=== PATIENT | male | born 1940 | race Caucasian/White ===

== ENCOUNTER 2016-08-26 03:42 | Inpatient (IN) | payer BC, OTHER ==
[~2016-08-26] VITALS: Ht 182.9 cm; Wt 108.3 kg
[2016-08-26] VITALS (41 sets, daily range): BP systolic 73–145; BP diastolic 54–86; PULSE 66–90; TEMP 36.7–37.1; O2SAT 73–98; Ht 182.9 cm; Wt 108.3 kg
[~2016-08-26 03:42] MED LIST: AMLO-114 PO; ASPI-435 PO; HYDR12.56 PO; METO-596 PO
[2016-08-26] MEDS ORDERED: MoRPHine SULFATE 4 MG/ML 1 ML CARP\\VIAL IV STA (03:53)
[2016-08-26] MEDS ORDERED: ONDANSETRON INJ 2 MG/ML 2 ML VIAL IV STA (03:53)
[2016-08-26] MEDS ORDERED: ASPIRIN 81 MG CHEW PO SCH (04:00)
[2016-08-26] MEDS ORDERED: NITROGLYCERIN/D5W 100 MCG/ML 250 ML IV PRN (04:00)
--- NOTE | 2016-08-26 04:03 | EMERGENCY ROOM VISIT NOTE ---
History Report prepared by Kunibla: Lexa Damon Under the Supervision of: Dr. Michel Dietrich D.O. 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 The patient was sleeping when the pain started. There is numbness in his left arm. He was sweaty earlier this morning when the pain started. The pain is rated 8/ 10 in severity. He denies shortness of breath or nausea. He had 81 mg Aspirin JEWEL BEARING GRINDER. He denies any history of heart attack and does not follow up with cardiology. The patient is treated for hypertension. He is a former smoker. Source of History: patient Onset: 2 hours JEWEL BEARING GRINDER Position: chest (left) Symptom Intensity: 8/10 Timing: other (persistent) Associated Symptoms: + diaphoresis, + numbness, No SOB, No nausea Review of Systems See HPI for pertinent positives and negatives. A total of ten systems were reviewed and were otherwise negative. Past Medical & Surgical Medical Problems: (1) Empyema (2) HTN (hypertension) Family History No pertinent family history Social History Smoking Status: Former Smoker Alcohol Use: occasionally Drug Use: marijuana Occupation Status: retired Current/Historical Medications Scheduled Amlodipine (Norvasc), 10 MG PO QAM Aspirin (Aspirin 81), 1 TAB PO QAM Fish Oil ([place]-3), 1 CAP PO Q2D Hydrochlorothiazide (Hctz), 37.5 MG PO QAM Metoprolol Tartrate (Lopressor) (Lopressor), 50 MG PO BID Scheduled PRN Senna (Senokot), 1 TAB PO DAILY PRN for Constipation Allergies Coded Allergies: No Known Allergies (Unverified , 05/09/15) Physical Exam Vital Signs Date Time Temp Pulse Resp B/P Pulse Ox O2 Delivery O2 Flow Rate FiO2 08/26/16 04:32 55 18 112/70 93 08/26/16 04:18 58 18 118/74 94 Nasal Cannula 2.0 08/26/16 04:04 58 08/26/16 03:57 Nasal Cannula 2.0 08/26/16 03:52 Nasal Cannula 2.0 08/26/16 03:52 Nasal Cannula 08/26/16 03:47 36.4 94 16 127/83 93 Room Air Physical Exam GENERAL: Awake, alert, well-appearing, in no distress HENT: Normocephalic, atraumatic. Oropharynx unremarkable. EYES: Normal conjunctiva. Sclera non-icteric. NECK: Supple. No nuchal rigidity. FROM. No JVD. RESPIRATORY: Clear to auscultation. CARDIAC: Regular rate, normal rhythm. Extremities warm and well perfused. Pulses equal. ABDOMEN: Soft, non-distended. No tenderness to palpation. No rebound or guarding. No masses. RECTAL: Deferred. MUSCULOSKELETAL: Chest examination reveals no tenderness. The back is symmetrical on inspection without obvious abnormality. There is no CVA tenderness to palpation. No joint edema. Surgical scar left shoulder area. LOWER EXTREMITIES: Calves are equal size bilaterally and non-tender. No edema. No discoloration. NEURO: Normal sensorium. No sensory or motor deficits noted. SKIN: Diaphoretic. Medical Decision & Procedures ER Provider Diagnostic Interpretation: X-ray: Per my interpretation, Chest One View Portable: Cardiomegaly, mild CHF. Laboratory Results 08/26/16 04:05 Red Blood Count 4.66, Mean Corpuscular Volume 95.5, Mean Corpuscular Hemoglobin 32.8, Mean Corpuscular Hemoglobin Concent 34.4, Mean Platelet Volume 10.6, Neutrophils (%) (Auto) 68.6, Lymphocytes (%) (Auto) 22.4, Monocytes (%) (Auto) 6.4, Eosinophils (%) (Auto) 2.1, Basophils (%) (Auto) 0.3, Neutrophils # (Auto) 7.31, Lymphocytes # (Auto) 2.38, Monocytes # (Auto) 0.68, Eosinophils # (Auto) 0.22, Basophils # (Auto) 0.03 08/26/16 04:05 Test 08/26/16 04:05 08/26/16 04:14 White Blood Count 10.64 K/uL (4.8-10.8) Red Blood Count 4.66 M/uL (4.7-6.1) Hemoglobin 15.3 g/dL (14.0-18.0) Hematocrit 44.5 % (42-52) Mean Corpuscular Volume 95.5 fL (80-100) Mean Corpuscular Hemoglobin 32.8 pg (25-34) Mean Corpuscular Hemoglobin Concent 34.4 g/dl (32-36) Platelet Count 235 K/uL (130-400) Mean Platelet Volume 10.6 fL (7.4-10.4) Neutrophils (%) (Auto) 68.6 % Lymphocytes (%) (Auto) 22.4 % Monocytes (%) (Auto) 6.4 % Eosinophils (%) (Auto) 2.1 % Basophils (%) (Auto) 0.3 % Neutrophils # (Auto) 7.31 K/uL (1.4-6.5) Lymphocytes # (Auto) 2.38 K/uL (1.2-3.4) Monocytes # (Auto) 0.68 K/uL (0.11-0.59) Eosinophils # (Auto) 0.22 K/uL (0-0.5) Basophils # (Auto) 0.03 K/uL (0-0.2) RDW Standard Deviation 46.7 fL (36.4-46.3) RDW Coefficient of Variation 13.4 % (11.5-14.5) Immature Granulocyte % (Auto) 0.2 % Immature Granulocyte # (Auto) 0.02 K/uL (0.00-0.02) Anion Gap 10.0 mmol/L (3-11) Est Creatinine Clear Calc Drug Dose 69.0 ml/min Estimated GFR () 69.1 Estimated GFR (Non- 59.6 BUN/Creatinine Ratio 14.4 (10-20) Calcium Level 8.7 mg/dl (8.5-10.1) Total Bilirubin 0.5 mg/dl (0.2-1) Direct Bilirubin 0.1 mg/dl (0-0.2) Aspartate Amino Transf (AST/SGOT) 23 U/L (15-37) Alanine Aminotransferase (ALT/SGPT) 30 U/L (12-78) Alkaline Phosphatase 90 U/L (45-117) Total Protein 7.7 gm/dl (6.4-8.2) Albumin 4.1 gm/dl (3.4-5.0) Bedside Troponin I 0.060 ng/ml (0-0.045) Laboratory results reviewed by me Medications Administered Medications (Trade) Dose Ordered Sig/Norm Route Start Time Stop Time Status Last Admin Dose Admin Aspirin (Aspirin Chew) 324 mg NOW PO 08/26/16 04:00 09/25/16 03:59 08/26/16 04:03 324 MG Morphine Sulfate (MoRPHine SULFATE INJ) 4 mg NOW STAT IV 08/26/16 03:53 08/26/16 03:57 DC 08/26/16 04:03 4 MG Ondansetron HCl (Zofran Inj) 4 mg NOW STAT IV 08/26/16 03:53 08/26/16 03:57 DC 08/26/16 04:03 4 MG Heparin Sodium (Porcine) (Heparin Iv Bolus) 10,000 unit Advanced Oncotherapy-MED ONCE .ROUTE 08/26/16 04:19 08/26/16 04:20 DC 08/26/16 04:27 10,000 UNIT ECG Indication: chest pain Rate (beats per minute): 59 Rhythm: sinus bradycardia Findings: ST elevation (V4, V5, V6, AvL), other (Recipricol changes II, III, AvF. Findings consistent with acute lateral wall MS.) Comparison ECG Date: 2011 Change: Changes are new compared to normal EKG on date above. ED Course 0350: The patient was evaluated in room A3. A complete history and physical exam was performed. 0353: Zofran 4 mg IV, Morphine Sulfate 4 mg IV. 0400: Nitroglycerin / Dextrose 250 ml @ 0 mls/hr, Aspirin 324 mg PO. 0410: The patient will be evaluated by Dr. Rodgers, Interventional Cardiology. 0430: The patient is on their way to the cardiac catheterization lab. Medical Decision Differential diagnosis includes acute MS, acute myocarditis, acute pericarditis , acute PE, acute aortic dissection, angina, unstable angina. Patient started on aspirin, morphine, nitroglycerin. Patient has ST segment elevation the lateral leads consistent with lateral wall MS. Heart alert was called associate [employer] seen the patient off to the agriculture laborer for further intervention at 4:30. Patient remained in stable condition throughout emergency department evaluation Consults Time Called: [phone] Consulting Physician: Dr. Rodgers, Interventional Cardiology. Returned Call: [phone] Impression Primary Impression: Acute ST elevation myocardial infarction (STEMI) of lateral wall Critical Care I have personally spent greater than 35 minutes of critical care time in the direct management of this patient. This includes bedside care, interpretation of diagnostic studies, and testing, discussion with consultants, patient, and family members, and other required patient management activities. This 35 minutes is in excess of all separately billable procedures. Scribe Attestation The scribe's documentation has been prepared under my direction and personally reviewed by me in its entirety. I confirm that the note above accurately reflects all work, treatment, procedures, and medical decision making performed by me. Departure Information Dispostion Other (Cardiac Route Jumper) Referrals No Doctor, Assigned (PCP) Patient Instructions [facility]
[2016-08-26] MEDS ORDERED: METO50TA16 PO (04:07)
[2016-08-26] MEDS ORDERED: NiCARDipine HCL INJ 2.5 MG/ML 10 ML AMP ONE (04:18)
[2016-08-26] MEDS ORDERED: NITROGLYCERIN/D5W 100MCG/ML 20ML SYR ONE (04:19)
[2016-08-26] MEDS ORDERED: HEPARIN SOD (PORCINE) 1000 UNIT/ML 10 ML VIAL ONE (04:19)
[2016-08-26] MEDS ORDERED: MIDAZOLAM HCL 1 MG/ML 2ML VIAL ONE (04:19)
[2016-08-26] MEDS ORDERED: FENTANYL CITRATE INJ 50 MCG/1 ML 2 ML VIAL ONE (04:19)
[2016-08-26] MEDS ORDERED: OMEG10007 PO (04:20)
[2016-08-26 04:21] LABS: BASO % 0.3 %; BASO ABS # 0.03 K/uL (0-0.2); COMPLETE YES; EOS % 2.1 %; HEMATOCRIT 44.5 % (42-52); IG% 0.2 %; LYMPH % 22.4 %; LYMPH ABS # 2.38 K/uL (1.2-3.4); MEAN CELL VOLUME 95.5 fL (80-100); MEAN CORPUSCULAR HEMOGLOBIN 32.8 pg (25-34); MEAN CORPUSCULAR HGB CONC 34.4 g/dl (32-36); MEAN PLATELET VOLUME 10.6 fL (7.4-10.4); MONO % 6.4 %; NEUT % 68.6 %; PLATELET COUNT 235 K/uL (130-400); RED BLOOD COUNT 4.66 M/uL (4.7-6.1); WHITE BLOOD COUNT 10.64 K/uL (4.8-10.8)
[2016-08-26] MEDS ORDERED: SENN-61 PO (04:23)
[2016-08-26] MEDS ORDERED: HEPARIN SOD 5000 UNIT/0.5 ML CARP ONE (04:24)
[2016-08-26 04:34] LABS: BUN/CREATININE RATIO 14.4 (10-20); CALCIUM 8.7 mg/dl (8.5-10.1); CREATININE 1.2 mg/dl (0.60-1.40); POTASSIUM 3.8 mmol/L (3.5-5.1)
[2016-08-26] MEDS ORDERED: PHENYLEPHRINE HCL INJ 10 MG/ML VIAL ONE (04:38)
[2016-08-26 04:43] LABS: INR 0.9 (0.9-1.1)
[2016-08-26] MEDS ORDERED: TICAGRELOR 90 MG TAB PO ONE (05:01)
[2016-08-26] MEDS ORDERED: EPTIFIBATIDE 2 MG/ML 10 ML VIAL IV ONE (05:16)
[2016-08-26] MEDS ORDERED: DOBUTamine 500MG / 250ML D5W ONE (05:33)
[2016-08-26] MEDS ORDERED: ONDANSETRON INJ 2 MG/ML 2 ML VIAL ONE ×2 (06:04→09:36)
[2016-08-26] MEDS ORDERED: METOCLOPRAMIDE HCL INJ 5 MG/ML 2 ML VIAL ONE ×2 (06:06→10:02)
[2016-08-26] MEDS ORDERED: ATROPINE SULFATE 0.1 MG/ML 10 ML SYR ONE (06:15)
--- NOTE | 2016-08-26 06:16 | Critical Care Consultation ---
Critical Care Consultation Date of Consultation: Aug 26, 2016. Attending Physician: Dr. Pham Reason for Consultation: STEMI with TONNY to LAD History of Present Illness Attending: Dr. Trevor Mayer Patient is a 75-year-old male who presented to the emergency department with chest pain that occurred shortly after getting up to urinate approximately 2 hours prior to his arrival to the ED. He stated there was a continuous dull midsternal pain with numbness going down his left arm and that he was sweaty earlier in the morning. He rated the pain at that time is 8 out of 10 in severity. He took an 81 mg aspirin prior to coming to the emergency department. He states that besides his profuse sweating he had no other symptoms such as shortness of breath, nausea, or vomiting. He is no history of heart attack and has not had any outpatient care with cardiology. He is however a former smoker and is treated for hypertension and hyperlipidemia. He states his family physician has told him that he is borderline for diabetes but currently does not carry the diagnosis or treatment. He denies a history of COPD, CVA, cardiac arrhythmias or blood clots such as DVTs or PEs. Patient did undergo a recent colonoscopy for bleeding that was clean and found to have only diverticulosis and a nonbleeding hemorrhoid. Upon arrival in the ICU he [facility] he underwent one drug- eluting stent to the LAD. Received 16,000 units of heparin, 180 mg Brilinta, and is currently on 5 g of Dobutamine for hypotension. It is my understanding that the patient was bradycardic into the 40s throughout the cath, this is improved since arrival to the ICU and is now in the mid upper 60s. He was also noted to be systolically 70 and his blood pressure and hence was placed on the dobutamine drip; since arrival in the ICU he is in the low 90s. According to nursing staff that was with patient in the He had episodes of hypoxia but was not sure that the pulse ox was reading correctly. Patient arrived on 15 L to the ICU and has been slowly weaning back. A new pulse ox on his forehead is reading greater than 90%. He denies fever/chills, chest pain or pressure, shortness of breath. He denies abdominal pain, nausea, vomiting. He does state that in the past few weeks he has had an increased urinary urge and has trouble making it to the restroom. But denies frequency, dysuria, hematuria. He denies numbness or tingling of the extremities. Past Medical/Surgical History Medical Problems: Empyema HTN (hypertension) Hyperlipidemia STEMI Surgical History: I&D Chest Wall Infection Family History No pertinent family history Mother & Father DM Social History Smoking Status: Former Smoker Drug Use: none Marital Status: single Housing Status: lives alone Occupation Status: retired Allergies Coded Allergies: No Known Allergies (Unverified , 05/09/15) Home Medications Scheduled Amlodipine (Norvasc), 10 MG PO QAM Aspirin (Aspirin 81), 1 TAB PO QAM Fish Oil ([place]-3), 1 CAP PO Q2D Hydrochlorothiazide (Hctz), 37.5 MG PO QAM Metoprolol Tartrate (Lopressor) (Lopressor), 50 MG PO BID Scheduled PRN Senna (Senokot), 1 TAB PO DAILY PRN for Constipation Current Inpatient Medications Current Inpatient Medications Medications (Trade) Dose Ordered Sig/Norm Route Start Time Stop Time Status Last Admin Dose Admin Aspirin 324 mg 324 mg NOW PO 08/26/16 04:00 09/25/16 03:59 08/26/16 04:03 324 MG Nitroglycerin/ Dextrose (Nitroglycerin/ D5w 100 Mcg/Ml) 250 ml @ 0 mls/hr Q0M PRN IV 08/26/16 04:00 09/25/16 03:59 Review of Systems 12 systems reviewed and negative other than previously mentioned in the HPI. Physical Exam Date Time Temp Pulse Resp B/P Pulse Ox O2 Delivery O2 Flow Rate FiO2 08/26/16 04:32 55 18 112/70 93 08/26/16 04:18 58 18 118/74 94 Nasal Cannula 2.0 08/26/16 04:04 58 08/26/16 03:57 Nasal Cannula 2.0 08/26/16 03:52 Nasal Cannula 2.0 08/26/16 03:52 Nasal Cannula 08/26/16 03:47 36.4 94 16 127/83 93 Room Air Vital Signs - as noted Laboratory Data - as noted Physical Exam: General - NAD, Resting in bed with Oxygen via Face Mask at 13L Eyes - PERRL, EOMI No icterus, gaze conjugate ENT - Mucosa moist, no lesions or candidiasis Neck - Supple, trachea midline, no masses or lymphadenopathy, no JVD or bruits Lungs - No paradoxical chest wall movement, diminished breath sounds bilaterally , no wheezes, rales, or rhonchi Heart - Reg rate and rhythm, No murmur, rubs, clicks, or gallops appreciated Abdomen - BS present, no bruits noted, tympanic to percussion, obese, soft, nontender, nondistended, no organomegaly Extremities - Trace edema to mid chins bilaterally, pedal pulses intact Neuro - A&OX4 Strength extremities equal and appropriate bilaterally Reflexes: Bicep, brachioradialis, patellar, and plantar normal and equal CN:PERRL, EOMI, no facial asymmetry, uvula/tongue midline Laboratory Results Last 24 Hours Test 08/26/16 04:05 08/26/16 04:14 White Blood Count 10.64 K/uL Red Blood Count 4.66 M/uL Hemoglobin 15.3 g/dL Hematocrit 44.5 % Mean Corpuscular Volume 95.5 fL Mean Corpuscular Hemoglobin 32.8 pg Mean Corpuscular Hemoglobin Concent 34.4 g/dl Platelet Count 235 K/uL Mean Platelet Volume 10.6 fL Neutrophils (%) (Auto) 68.6 % Lymphocytes (%) (Auto) 22.4 % Monocytes (%) (Auto) 6.4 % Eosinophils (%) (Auto) 2.1 % Basophils (%) (Auto) 0.3 % Neutrophils # (Auto) 7.31 K/uL Lymphocytes # (Auto) 2.38 K/uL Monocytes # (Auto) 0.68 K/uL Eosinophils # (Auto) 0.22 K/uL Basophils # (Auto) 0.03 K/uL RDW Standard Deviation 46.7 fL RDW Coefficient of Variation 13.4 % Immature Granulocyte % (Auto) 0.2 % Immature Granulocyte # (Auto) 0.02 K/uL Prothrombin Time 10.0 SECONDS Prothromb Time International Ratio 0.9 Sodium Level 142 mmol/L Potassium Level 3.8 mmol/L Chloride Level 106 mmol/L Carbon Dioxide Level 26 mmol/L Anion Gap 10.0 mmol/L Blood Urea Nitrogen 17 mg/dl Creatinine 1.20 mg/dl Est Creatinine Clear Calc Drug Dose 69.0 ml/min Estimated GFR () 69.1 Estimated GFR (Non- 59.6 BUN/Creatinine Ratio 14.4 Random Glucose 132 mg/dl Calcium Level 8.7 mg/dl Total Bilirubin 0.5 mg/dl Direct Bilirubin 0.1 mg/dl Aspartate Amino Transf (AST/SGOT) 23 U/L Alanine Aminotransferase (ALT/SGPT) 30 U/L Alkaline Phosphatase 90 U/L Total Protein 7.7 gm/dl Albumin 4.1 gm/dl Bedside Troponin I 0.060 ng/ml Diagnostic Results CXR: Formal Read Pending Per my review: vascular congestion noted bilaterally. Haziness around heart border. increased density in bilateral bases. No bony abnormality. Trachea midline. Assessment & Plan (1) Hyperlipidemia (2) Acute ST elevation myocardial infarction (STEMI) of lateralwall (3) HTN (hypertension) (4) Chest pain Cardiac: * Acute STEMI lateral wall, received 1 TONNY to the LAD * Trend Cardiac Enzymes * Continue Anticoagulation per Dr. Robledo Recommendation * Restart home Cardiac Medications Beta Juice(when Blood pressure allows) and Statin * Obtain ECHO * Consult Cardiology * Reviewed EKG from 0348 * Monitor on Telemetry * Obtain Random Cortisol * Wean Dobutamine as blood pressure tolerates Respiratory: * Continue Supplemental O2 as needed, wean as indicated * Adequate Saturations currently on 13 L Nasal cannula * Repeat CXR in AM of 08/27 GI: * NPO while on Dobutamine * AHA Diet when stable * No GI prophylaxis indicated : * Monitor Daily PRP * Strict I&Os Endocrine: * Monitor blood sugars per nursing protocol * No known diabetes diagnosis Neuro: * Pain well controlled * No neurological symptoms; monitor for changes Heme: * H&H: 15.3/44.5; platelets 235 * PT 10.0 INR 0.9 * Monitor daily CBC * Repeat coags per anticoagulation in the setting of STEMI Access: Left subclavian & Left Forearm PIV in place; Will consent for Central Line/Arterial Line in the setting of continued hypotension CCT: 60 minutes; Not including any billable procedures. Thank you for including us in the care of this patient. Please review Dr. Trevor Mayer's addendum for further recommendations. I have personally evaluated and examined this patient. I agree with assessment and plan of Dorina Hong PA-C. I had a long discussion with the patient regarding his goals of care. He does not want heroic measures undertaken should his heart stop. Particularly he does not want intubation, he does not want CPR. We discussed placing a central venous catheter for administration of vasoactive medications. He does not consider the risks acceptable for possible benefit, he is willing to undergo a PICC line and this is been ordered. We discussed a arterial line and at this time the patient prefers not to undergo that procedure either. Accordingly I discussed this with Dr. Campos and I have changed his resuscitation status to a level V, DO NOT RESUSCITATE in event of cardiac arrest, no intubation nor mechanical ventilation. Reason Critically Ill: Cardiogenic shock following acute myocardial infarction PLAN: Resp: At risk for flash pulmonary edema secondary to cardiogenic shock secondary to acute SD, does not want intubation or mechanical ventilation would consider noninvasive ventilation to augment hemodynamics CV: Reviewed echocardiogram, EF of 30-35% left anterior wall motion abnormality , discussed case with Dr. Campos, concern for cardiogenic shock on dobutamine, on amiodarone, frequent ectopy Fluids/Renal: As continue IV fluids, will get enough fluid between amiodarone and heparin infusion. * Will be at risk for contrast-induced nephropathy, creatinine 1.2. Appears baseline 1-1.1 ID: Trace left pleural effusion could be secondary to prior empyema which required hospitalization in [facility]. GI/Nutrition: Patient can have diet as tolerated, ordered heart healthy, low- sodium, fluid restriction to 1500 MLS. * Patient currently nauseated likely secondary to recent cardiac disease and diaphragmatic irritation * Phenergan 12.5 mg every 6 hours * Patient at risk for aspiration secondary to noninvasive ventilation and nausea with vomiting again patient does not want to be intubated and his care focus on his comfort Heme: Heparin infusion status post acute myocardial infarction and low EF Endocrine: Blood sugars within acceptable limits reviewed random cortisol Patient's goals of care to remain comfortable, does not want heroic efforts undertaken, at this time will not discontinue any care. Would not desire mechanical circulatory support. Patient has a poor prognosis. I have personally spent 45 minutes of critical care time in the direct management of this patient. This time is separate from and in addition to any other critical care service time.
--- NOTE | 2016-08-26 06:20 | Cardiac Catheterization ---
Procedure Note Procedure Date Aug 26, 2016. Pre-Procedure Diagnosis STEMI AUC Score 9 Post-Procedure Diagnosis Severe CAD Procedure(s) Performed Coronary Angiography, Left Heart Cath, PTCA, Aspiration Thrombectomy, Drug Eluting Stent, IVUS, Radial Artery Angiography [employer] Analyst [employer] Counselor(s) None Estimated Blood Loss 20 Medication(s) Aspirin, Heparin, Integrilin, Greg-Synephrine, Versed, Lidocaine 1% Dobutamine 5 mcg/kg/min, Ticagralor 180 mg po Summary of Findings Three vessel coronary artery disease Successful IVUS guided aspiration thrombectomy and TONNY placement in Proximal LAD Marked elevation of LVEDP Relative hypotension requiring treatment. Remaining lesions in RCA and OM Hemodynamics Rest Ao: 88/56 (71) Final Ao: 106/60 LV: 91/23 post "a" 30 Recommendations PCI without planned CABG (Ween dobutamine over next few hours. DAPT minimum 12 months. Consider staged PCI for RCA and OM) Specimens None Radiation Exposure (mGy) 4060 Contrast (mls) 150 Fluids (cc crystalloids) 130 Procedural Complication(s) None Disposition ICU ACC Data Cardiac Status Clinical evaluation leading to the procedure CAD Presntation: STEMI STEMI or Non-STEMI: Thrombolytics: No Anginal Classification: CCS IV Heart Failure: No Cardiogenic Shock w/in 24Hrs: No Cardiac Arrest w/in 24Hrs: No Imaging studies past 6 months: No Stress studies past 6 months: No Coronary Anatomy Dominant: Right Left Main (% Stenosis): Normal LAD (% Stenosis): Proximal (100) D1 (% Stenosis): Proximal (85), Mid (75) Circumflex (% Stenosis): Mid (75) OM1 (% Stenosis): Ostial (85) L PL1 (% Stenosis): Proximal (85) RCA (% Stenosis): Proximal (65), Mid (75), Distal (65) Diagnostic Physician's Name: Lakhwinder Rodgers MD Status: Emergency Closure Device Percutaneous Entry Location: Radial Closure Device: Radial Band Recommendations: PCI without planned CABG, management recommendations (DAPT 12 months minimum) PCI Indication: Immediate PCI for STEMI First Noted: First EKG Lesion Segment Name: LAD proximal Culprit Artery: Yes Stenosis Prior to Rx (%): 100 Chronic Total Occlusion: No IVUS: Yes FFR: No Pre-Procedure DARRIAN Flow: 0 Lesion Complexity: Non-High/Non-C Lesion Length (mm): 30 Thrombus Present: Yes Bifurcation Lesion: Yes Guidewire Across Lesion: Yes Guidewire: Stenosis Post-Procedure (%): 10 Post-Procedure DARRIAN Flow: 3 Device(s) Deployed: Yes Type of Device(s): Aspiration thrombectomy retrieved red thrombus; 3.5 x 33 TONNY; post dilated with 3.75 proximal. IVUS without edge issues. MSA distal 9.7 sqmm; proximal 12.0 sqmm. Intraprocedure Events Significant Dissection: No Perforation: No
[2016-08-26] MEDS ORDERED: SODIUM CHLORIDE 0.9% 1000ML 1,000 ML IV SCH (06:34)
[2016-08-26] MEDS ORDERED: NITROGLYCERIN 0.4 MG SL PER TAB CHARGE SL PRN (06:45)
[2016-08-26] MEDS ORDERED: ALBUT/IPRATROP 3MG/0.5MG NEB 3 ML VIAL INH PRN (06:45)
[2016-08-26] MEDS ORDERED: SENNA 8.6 MG TAB PO PRN (06:45)
[2016-08-26] MEDS ORDERED: MoRPHine SULFATE 2 MG/ML CARP IV PRN ×2 (06:45→14:45)
[2016-08-26] MEDS ORDERED: ACETAMINOPHEN 325 MG TAB PO PRN (06:45)
--- NOTE | 2016-08-26 06:53 | History and Physical ---
History & Physical Date & Time of Service: Aug 26, 2016 at 06:53 Chief Complaint: Acute St Elevation Myocardial Infarction Of Primary Care Physician: No Doctor, Assigned History of Present Illness Source: patient Patient is a 75 yr old male with PMH of HTN, HLP, Former Tobacco use presents for evaluation of chest pain which started while trying to use bathroom this morning. He states having retrosternal chest pain and numbness of left UE associated with diaphoresis. Chest pain 8/10 intensity and he took Aspirin prior to arrival to ED. Denies any history of SOB, dizziness, nausea, vomiting, fever, chills, abd pain, diarrhea, urinary symptoms. Denies any previous history of heart attacks. He recently had colonoscopy which showed diverticulosis and hemorrhoids. Patient was seen and examined after he had TONNY to Proximal LAD and transferred to ICU. He is currently on Dobutamine ggt for hypotension and bradycardia. Past Medical/Surgical History Medical Problems: (1) Empyema Status: Resolved (2) HTN (hypertension) Status: Chronic Hyperlipidemia Past Surgical History: I&D of chest wall abscess Family History No pertinent family history Father, Mother: Diabetes Social History Smoking Status: Former Smoker Alcohol Use: socially Drug Use: none, marijuana Housing status: lives alone Occupational Status: retired Immunizations History of Influenza Vaccine: No History of Tetanus Vaccine?: Unknown History of Pneumococcal: Yes History of Hepatitis B Vaccine: Unknown Multi-Drug Resistant Organisms History of MDRO: No Allergies Coded Allergies: No Known Allergies (Unverified , 05/09/15) Home Medications Scheduled Amlodipine (Norvasc), 10 MG PO QAM Aspirin (Aspirin 81), 1 TAB PO QAM Fish Oil ([place]-3), 1 CAP PO Q2D Hydrochlorothiazide (Hctz), 37.5 MG PO QAM Metoprolol Tartrate (Lopressor) (Lopressor), 50 MG PO BID Scheduled PRN Senna (Senokot), 1 TAB PO DAILY PRN for Constipation Review of Systems See HPI for pertinent positives & negatives. A total of 10 systems reviewed and were otherwise negative. Physical Exam Vital Signs Date Time Temp Pulse Resp B/P Pulse Ox O2 Delivery O2 Flow Rate FiO2 08/26/16 04:32 55 18 112/70 93 08/26/16 04:18 58 18 118/74 94 Nasal Cannula 2.0 08/26/16 04:04 58 08/26/16 03:57 Nasal Cannula 2.0 08/26/16 03:52 Nasal Cannula 2.0 08/26/16 03:52 Nasal Cannula 08/26/16 03:47 36.4 94 16 127/83 93 Room Air General Appearance: WD/WN, no apparent distress Head: normocephalic, atraumatic Eyes: normal inspection, PERRL, EOMI ENT: normal ENT inspection, hearing grossly normal Neck: supple, trachea midline Respiratory/Chest: lungs clear, normal breath sounds, no respiratory distress, no accessory muscle use Cardiovascular: regular rate, rhythm, no murmur, + pertinent finding (1+ B/L pitting edema ) Abdomen/GI: normal bowel sounds, non tender, soft Back: normal inspection Extremities/Musculoskelatal: normal inspection, normal range of motion, + pertinent finding (1+ B/L LE edema) Neurologic/Psych: teletype technician II-XII nml as tested, no motor/sensory deficits, alert, normal mood/affect, normal reflexes, oriented x 3 Skin: normal color, warm/dry Diagnostics Laboratory Results Results Past 24 Hours Test 08/26/16 04:05 08/26/16 04:14 08/26/16 05:00 08/26/16 05:27 Range/Units White Blood Count 10.64 4.8-10.8 K/uL Red Blood Count 4.66 4.7-6.1 M/uL Hemoglobin 15.3 14.0-18.0 g/dL Hematocrit 44.5 42-52 % Mean Corpuscular Volume 95.5 80-100 fL Mean Corpuscular Hemoglobin 32.8 25-34 pg Mean Corpuscular Hemoglobin Concent 34.4 32-36 g/dl Platelet Count 235 130-400 K/uL Mean Platelet Volume 10.6 7.4-10.4 fL Neutrophils (%) (Auto) 68.6 % Lymphocytes (%) (Auto) 22.4 % Monocytes (%) (Auto) 6.4 % Eosinophils (%) (Auto) 2.1 % Basophils (%) (Auto) 0.3 % Neutrophils # (Auto) 7.31 1.4-6.5 K/uL Lymphocytes # (Auto) 2.38 1.2-3.4 K/uL Monocytes # (Auto) 0.68 0.11-0.59 K/uL Eosinophils # (Auto) 0.22 0-0.5 K/uL Basophils # (Auto) 0.03 0-0.2 K/uL RDW Standard Deviation 46.7 36.4-46.3 fL RDW Coefficient of Variation 13.4 11.5-14.5 % Immature Granulocyte % (Auto) 0.2 % Immature Granulocyte # (Auto) 0.02 0.00-0.02 K/uL Prothrombin Time 10.0 9.0-12.0 SECONDS Prothromb Time International Ratio 0.9 0.9-1.1 Sodium Level 142 136-145 mmol/L Potassium Level 3.8 3.5-5.1 mmol/L Chloride Level 106 98-107 mmol/L Carbon Dioxide Level 26 21-32 mmol/L Anion Gap 10.0 3-11 mmol/L Blood Urea Nitrogen 17 7-18 mg/dl Creatinine 1.20 0.60-1.40 mg/dl Est Creatinine Clear Calc Drug Dose 69.0 ml/min Estimated GFR () 69.1 Estimated GFR (Non- 59.6 BUN/Creatinine Ratio 14.4 10-20 Random Glucose 132 70-99 mg/dl Calcium Level 8.7 8.5-10.1 mg/dl Total Bilirubin 0.5 0.2-1 mg/dl Direct Bilirubin 0.1 0-0.2 mg/dl Aspartate Amino Transf (AST/SGOT) 23 15-37 U/L Alanine Aminotransferase (ALT/SGPT) 30 12-78 U/L Alkaline Phosphatase 90 45-117 U/L Total Protein 7.7 6.4-8.2 gm/dl Albumin 4.1 3.4-5.0 gm/dl Bedside Troponin I 0.060 0-0.045 ng/ml Kaolin Activated Coagulation Time 209 312 94-140 SECONDS Test 08/26/16 06:49 Range/Units Diagnostic Radiology CXR: Cardiomegaly EKG EKG:ST elevation in V4, V5, V6, AVL Impression Assessment and Plan STEMI S/P TONNY to LAD Risk Factors: HTN, HLP, Former smoker Present with retrosternal chest pain and left arm numbness, diaphoresis Admit to ICU On dobutamine ggt for hypotension. titrate off as able Continue ASA, Lipitor, BB Trend Troponin Check ECHO Check fasting lipid panel, A1C Oxygen Per protocol Clear liquid diet Cardiology/Ensemble Member consulted HTN: Hold Amlodipine, HCTZ for now HLP Continue Lipitor H/O Diverticulosis: Currently no issues of bleeding Hb stable GI px: PPI DVT Px: Heparin SQ Code Status: Full code Disposition: Monitor in ICU VTE Prophylaxis VTE Risk Assessment Done? Y/N: Yes Risk Level: Moderate
--- NOTE | 2016-08-26 07:03 | DIAGNOSTIC IMAGING REPORT ---
CHEST ONE VIEW PORTABLE CLINICAL HISTORY: Chest pain. Left arm numbness. COMPARISON STUDY: Chest radiograph and chest CT May 19, 2011. FINDINGS: There is no pneumothorax. There may be a trace left pleural effusion. There is lower lung interstitial thickening. There is no evidence for overt pulmonary edema. Mild cardiomegaly is noted. IMPRESSION: 1. Mild cardiomegaly. 2. Mild bibasilar opacities and interstitial thickening. No overt pulmonary edema. Radiographic follow-up is recommended. 3. Trace left pleural effusion. Electronically signed by: Roney Rick M.D. 08/26/2016 7:02 AM Dictated Date/Time: 08/26/2016 7:00 AM
[2016-08-26] MEDS ORDERED: MAGNESIUM SULFATE 1GM / D5W 1 GM in PREMIXED IN D5W 100 ML IV STA (08:49)
[2016-08-26] MEDS ORDERED: METOPROLOL TARTRATE 50 MG TAB PO SCH (09:00)
[2016-08-26] MEDS ORDERED: ASPIRIN 81 MG ECTAB PO SCH (09:00)
[2016-08-26] MEDS ORDERED: ATORVASTATIN 40 MG TAB PO SCH (09:00)
[2016-08-26] MEDS ORDERED: PANTOprazole SOD 40 MG TAB PO SCH (09:00)
[2016-08-26] MEDS ORDERED: DOPamine 400MG / 250ML D5W ONE (09:21)
[2016-08-26] MEDS ORDERED: DOPamine 400MG / D5W 400 MG IV PRN (09:30)
[2016-08-26] MEDS ORDERED: ONDANSETRON 8 MG/54 ML D5W IV SCH (09:45)
--- NOTE | 2016-08-26 10:21 | ECHOCARDIOGRAM REPORT ---
*NOTICE TO RECEIVING [employer] This information is strictly Confidential and protected under [place] law. [place] law prohibits you from making any further disclosure of this information unless further disclosure is expressly permitted by the written consent of the person to whom it pertains or is authorized by law. A general authorization for the release of medical or other information is not sufficient for this purpose. Hospital accepts no responsibility if the information is made available to any other person, INCLUDING THE PATIENT. Interpretation Summary * Name: NONI FRANZ Study Date: 08/26/2016 08:42 AM BP: 114/65 mmHg * Patient Location: .MSICU\S\E111\S\1 HR: 70 * : 1940 (M/d/yyy) Gender: Male Height: 72 in * Age: 75 yrs Ethnicity: CA Weight: 233 lb * Ordering Physician: Joe Pham * Performed By: Camryn Goss * * Reason For Study: AMI * BSA: 2.3 m2 * -- Conclusions -- * There is moderate concentric left ventricular hypertrophy. * There is anterior wall akinesis. * There is septal akinesis. * There is lateral wall akinesis. * There is apical akinesis. * Ejection Fraction = 30-35%. * The right ventricular systolic function is normal. * The left atrial size is normal. * Right atrial size is normal. Procedure Details * A complete two-dimensional transthoracic echocardiogram was performed (2D, M-mode, Doppler and color flow Doppler). * The study was technically difficult. * A contrast injection of Definity was performed to improve assessment of LV function. * Contrast was injected into an intravenous site in the left arm. * One vial of Definity ultrasound contrast was diluted in normal saline to a total volume of 10 ml. A total of '2' ml of solution was administered during imaging. * Lot # [id number] of Definity utilized for procedure. * Expiration date 08/14. * The attending nurse who injected the contrast agent was DANIEL TORO RN. Left Ventricle * The left ventricle is normal in size. * There is no thrombus. * There is moderate concentric left ventricular hypertrophy. * Ejection Fraction = 30-35%. * Left ventricular systolic function is moderate to severely reduced. * There is anterior wall akinesis. * There is septal akinesis. * There is lateral wall akinesis. * There is apical akinesis. Right Ventricle * The right ventricle is normal size. * The right ventricular systolic function is normal. Atria * The left atrial size is normal. * Right atrial size is normal. * The interatrial septum is intact with no evidence for an atrial septal defect. Mitral Valve * The mitral valve is grossly normal. * Significant mitral regurgitation is absent. Tricuspid Valve * The tricuspid valve is not well visualized. * Significant tricuspid regurgitation is absent. Aortic Valve * Aortic valve sclerosis mild, without significant aortic valvular stenosis. * There is no significant aortic regurgitation. Pulmonic Valve * The pulmonic valve is not well visualized. Great Vessels * The aortic root and proximal ascending aorta are normal sized. Pericardium/Pleural * There is no pericardial effusion. MMode 2D Measurements and Calculations IVSd 1.9 cm IVSs 1.7 cm LVIDd 5.0 cm LVIDs 3.4 cm LVPWd 1.4 cm LVPWs 2.4 cm IVS/LVPW 1.4 FS 31.4 % EDV(Teich) 119.5 ml ESV(Teich) 49.1 ml EF(Teich) 59.0 % EDV(cubed) 126.8 ml ESV(cubed) 41.0 ml EF(cubed) 67.7 % % IVS thick -9.05 % % LVPW thick 80.9 % LV mass(C)d 361.9 grams LV mass(C)dI 159.2 grams/m\S\2 LV mass(C)s 331.1 grams LV mass(C)sI 145.6 grams/m\S\2 SV(Teich) 70.5 ml SI(Teich) 31.0 ml/m\S\2 SV(cubed) 85.8 ml SI(cubed) 37.7 ml/m\S\2 ACS 1.1 cm LVOT diam 2.0 cm LVOT area 3.1 cm\S\2 LVAd ap4 41.4 cm\S\2 LVLd ap4 9.4 cm EDV(MOD-sp4) 150.1 ml EDV(sp4-el) 154.3 ml LVAs ap4 25.4 cm\S\2 LVLs ap4 8.3 cm ESV(MOD-sp4) 64.1 ml ESV(sp4-el) 66.4 ml EF(MOD-sp4) 57.3 % EF(sp4-el) 57.0 % LVAd ap2 30.7 cm\S\2 LVLd ap2 8.4 cm EDV(MOD-sp2) 92.0 ml EDV(sp2-el) 95.9 ml LVAs ap2 19.8 cm\S\2 LVLs ap2 7.9 cm ESV(MOD-sp2) 40.1 ml ESV(sp2-el) 42.3 ml EF(MOD-sp2) 56.4 % EF(sp2-el) 55.9 % LVLd %diff -12.69 % EDV(MOD-bp) 124.7 ml LVLs %diff -5.02 % ESV(MOD-bp) 50.4 ml EF(MOD-bp) 59.6 % SV(MOD-sp4) 85.9 ml SI(MOD-sp4) 37.8 ml/m\S\2 SV(MOD-sp2) 51.9 ml SI(MOD-sp2) 22.8 ml/m\S\2 SV(MOD-bp) 74.3 ml SI(MOD-bp) 32.7 ml/m\S\2 SV(sp4-el) 87.9 ml SI(sp4-el) 38.7 ml/m\S\2 SV(sp2-el) 53.7 ml SI(sp2-el) 23.6 ml/m\S\2 Doppler Measurements and Calculations MV E max milvia 85.5 cm/sec MV A max milvia 40.4 cm/sec MV E/A 2.1 MV dec time 0.20 sec Ao V2 max 135.3 cm/sec Ao max PG 7.3 mmHg Ao max PG (full) 5.6 mmHg LISA(V,A) 1.5 cm\S\2 LISA(V,D) 1.5 cm\S\2 LV V1 max PG 1.7 mmHg LV V1 max 65.6 cm/sec PA V2 max 81.4 cm/sec PA max PG 2.7 mmHg PI end-d milvia 146.0 cm/sec
[2016-08-26 10:26] LABS: MAGNESIUM 2.3 mg/dl (1.8-2.4); PHOSPHORUS 2.3 mg/dl (2.5-4.9)
[2016-08-26] MEDS ORDERED: AMIODARONE 360MG / 200ML D5W ONE (10:32)
[2016-08-26] MEDS ORDERED: AMIODARONE 150MG / 100ML D5W ONE (10:32)
[2016-08-26] MEDS ORDERED: HEPARIN 25,000 UNIT/500ML D5W 500 ML IV PRN (10:45)
[2016-08-26] MEDS ORDERED: ONDANSETRON 8 MG/54 ML D5W IV ONE (10:45)
[2016-08-26] MEDS ORDERED: ONDANSETRON INJ 8 MG in DEXTROSE 5% 50ML 50 ML IV ONE (10:45)
[2016-08-26] MEDS ORDERED: ONDANSETRON INJ 8 MG in DEXTROSE 5% 50ML 50 ML IV PRN (10:45)
[2016-08-26] MEDS ORDERED: AMIODARONE IV BOLUS / DRIP IV STA (10:51)
[2016-08-26 10:57] LABS: BASO % 0.1 %; BASO ABS # 0.02 K/uL (0-0.2); HEMATOCRIT 46.1 % (42-52); IG% 0.3 %; LYMPH % 10.2 %; MEAN CELL VOLUME 94.9 fL (80-100); MEAN CORPUSCULAR HEMOGLOBIN 32.5 pg (25-34); MEAN PLATELET VOLUME 10.5 fL (7.4-10.4); MONO % 8.3 %; NEUT % 81.1 %; PLATELET COUNT 245 K/uL (130-400); RED BLOOD COUNT 4.86 M/uL (4.7-6.1); WHITE BLOOD COUNT 14.65 K/uL (4.8-10.8)
[2016-08-26 11:03] LABS: COMPLETE YES; MEAN CORPUSCULAR HGB CONC 34.3 g/dl (32-36)
[2016-08-26 11:10] LABS: INR 0.9 (0.9-1.1); PARTIAL THROMBOPLASTIN RATIO 1.5
[2016-08-26] MEDS ORDERED: AMIODARONE / D5W 100 ML IV SCH (11:30)
[2016-08-26] MEDS ORDERED: AMIODARONE / D5W 200 ML IV SCH ×2 (11:45→17:46)
[2016-08-26] MEDS ORDERED: NURSING VERBAL MED ORDER ONE (12:15)
[2016-08-26] MEDS ORDERED: PROMETHAZINE HCL INJ 12.5 MG in SODIUM CHLORIDE 0.9% 50ML 50 ML IV PRN (12:30)
[2016-08-26] MEDS ORDERED: HEPARIN SOD 5000 UNIT/0.5 ML CARP SQ SCH (14:00)
--- NOTE | 2016-08-26 15:39 | Progress Note ---
Medicine Progress Note Date & Time of Visit: Aug 26, 2016 at 15:24. Subjective Pt was seen and examined Lying in bed, awake with no acute distress denies any chest pain at this time Objective Last 8 Hrs Date Time Temp Pulse Resp B/P Pulse Ox O2 Delivery O2 Flow Rate FiO2 08/26/16 14:00 37.0 77 24 115/66 98 CPAP 08/26/16 12:00 Mask 08/26/16 12:00 36.8 73 20 91/54 87 08/26/16 10:48 36.7 75 98/59 98 Nasal Cannula 15.0 08/26/16 10:00 36.7 73 18 89/62 87 08/26/16 09:48 36.7 73 89/62 96 Nasal Cannula 12.0 08/26/16 08:48 36.7 69 99/57 96 Nasal Cannula 10.0 08/26/16 08:00 Mask 08/26/16 08:00 Mask 08/26/16 07:48 36.7 70 114/65 96 Nasal Cannula 8.0 Physical Exam: General- no acute distress Head- atraumatic Eyes- PERRL, EOMI ENT- oropharynx clear Neck- supple, no JVD Lungs- Coarse Bs Heart- regular rhythm; no murmur Abdomen- normal bowel sounds, soft Extremities- no calf tenderness Neuro- alert, oriented x 3; PERRL, EOMI Skin- warm & dry Laboratory Results: Last 24 Hours Test 08/26/16 04:05 08/26/16 04:14 08/26/16 05:00 08/26/16 05:27 White Blood Count 10.64 K/uL Red Blood Count 4.66 M/uL Hemoglobin 15.3 g/dL Hematocrit 44.5 % Mean Corpuscular Volume 95.5 fL Mean Corpuscular Hemoglobin 32.8 pg Mean Corpuscular Hemoglobin Concent 34.4 g/dl Platelet Count 235 K/uL Mean Platelet Volume 10.6 fL Neutrophils (%) (Auto) 68.6 % Lymphocytes (%) (Auto) 22.4 % Monocytes (%) (Auto) 6.4 % Eosinophils (%) (Auto) 2.1 % Basophils (%) (Auto) 0.3 % Neutrophils # (Auto) 7.31 K/uL Lymphocytes # (Auto) 2.38 K/uL Monocytes # (Auto) 0.68 K/uL Eosinophils # (Auto) 0.22 K/uL Basophils # (Auto) 0.03 K/uL RDW Standard Deviation 46.7 fL RDW Coefficient of Variation 13.4 % Immature Granulocyte % (Auto) 0.2 % Immature Granulocyte # (Auto) 0.02 K/uL Prothrombin Time 10.0 SECONDS Prothromb Time International Ratio 0.9 Sodium Level 142 mmol/L Potassium Level 3.8 mmol/L Chloride Level 106 mmol/L Carbon Dioxide Level 26 mmol/L Anion Gap 10.0 mmol/L Blood Urea Nitrogen 17 mg/dl Creatinine 1.20 mg/dl Est Creatinine Clear Calc Drug Dose 69.0 ml/min Estimated GFR () 69.1 Estimated GFR (Non- 59.6 BUN/Creatinine Ratio 14.4 Random Glucose 132 mg/dl Calcium Level 8.7 mg/dl Total Bilirubin 0.5 mg/dl Direct Bilirubin 0.1 mg/dl Aspartate Amino Transf (AST/SGOT) 23 U/L Alanine Aminotransferase (ALT/SGPT) 30 U/L Alkaline Phosphatase 90 U/L Total Protein 7.7 gm/dl Albumin 4.1 gm/dl Bedside Troponin I 0.060 ng/ml Kaolin Activated Coagulation Time 209 SECONDS 312 SECONDS Test 08/26/16 06:49 08/26/16 07:27 08/26/16 08:30 08/26/16 10:48 Creatine Kinase MB Ratio Bedside Glucose 128 mg/dl Phosphorus Level 2.3 mg/dl Magnesium Level 2.3 mg/dl Creatine Kinase MB 638.5 ng/ml Troponin I > 200.000 ng/ml Random Cortisol 21.09 mcg/dl White Blood Count 14.65 K/uL Red Blood Count 4.86 M/uL Hemoglobin 15.8 g/dL Hematocrit 46.1 % Mean Corpuscular Volume 94.9 fL Mean Corpuscular Hemoglobin 32.5 pg Mean Corpuscular Hemoglobin Concent 34.3 g/dl Platelet Count 245 K/uL Mean Platelet Volume 10.5 fL Neutrophils (%) (Auto) 81.1 % Lymphocytes (%) (Auto) 10.2 % Monocytes (%) (Auto) 8.3 % Eosinophils (%) (Auto) 0.0 % Basophils (%) (Auto) 0.1 % Neutrophils # (Auto) 11.87 K/uL Lymphocytes # (Auto) 1.50 K/uL Monocytes # (Auto) 1.21 K/uL Eosinophils # (Auto) 0.00 K/uL Basophils # (Auto) 0.02 K/uL RDW Standard Deviation 47.1 fL RDW Coefficient of Variation 13.4 % Immature Granulocyte % (Auto) 0.3 % Immature Granulocyte # (Auto) 0.05 K/uL Prothrombin Time 10.0 SECONDS Prothromb Time International Ratio 0.9 Activated Partial Thromboplast Time 39.3 SECONDS Partial Thromboplastin Ratio 1.5 Test 08/26/16 12:08 08/26/16 12:49 08/26/16 13:25 Bedside Glucose 179 mg/dl Creatine Kinase MB Ratio Creatine Kinase MB 725.9 ng/ml Troponin I > 200.000 ng/ml Date/Time Source Procedure Growth Status 08/26/16 06:20 Nasal MRSA DNA Surveillance Screen - Final Specimen Negative for MRSA by DNA Probe Complete Assessment & Plan Acute STEMI S/P TONNY to LAD Risk Factors: HTN, HLP, Former smoker Troponin in the 200,000 Denies any chest pain at this time Continue dobutamine drip for hypotension and les Continue amiodarone and heparin drip HR and BP stable Continue ASA, Lipitor, BB check EKG and follow up on 3rd set troponin cardiology and Dairy Bar Manager on board ECHO Showed There is moderate concentric left ventricular hypertrophy. * There is anterior wall akinesis. * There is septal akinesis. * There is lateral wall akinesis. * There is apical akinesis. * Ejection Fraction = 30-35%. * The right ventricular systolic function is normal. * The left atrial size is normal. * Right atrial size is normal. HTN: BP in the low side Hold Amlodipine, HCTZ for now Monitor BP closely HLP Continue Lipitor H/O Diverticulosis: Currently no issues of bleeding Hb stable GI px: PPI DVT Px: Heparin drip Code Status DNR Consultants: Cardio Dairy Bar Manager Current Inpatient Medications: Current Inpatient Medications Medications (Trade) Dose Ordered Sig/Norm Route Start Time Stop Time Status Last Admin Dose Admin Acetaminophen (Tylenol Tab) 650 mg Q4H PRN PO 08/26/16 06:45 09/25/16 06:44 Nitroglycerin (Nitrostat Tab) 0.4 mg UD PRN SL 08/26/16 06:45 09/25/16 06:44 Aspirin (Ecotrin Tab) 81 mg QAM PO 08/26/16 09:00 09/25/16 08:59 Pantoprazole Sodium (Protonix Tab) 40 mg DAILY PO 08/26/16 09:00 09/25/16 08:59 Albuterol/ Ipratropium (Duoneb) 3 ml QID PRN INH 08/26/16 06:45 09/25/16 06:44 Senna (Senokot Tab) 8.6 mg DAILY PRN PO 08/26/16 06:45 09/25/16 06:44 Atorvastatin Calcium 40 mg 40 mg QAM PO 08/26/16 09:00 09/25/16 08:59 Dopamine HCl/ Dextrose (DOPamine 400MG / D5W) 250 ml @ 0 mls/hr Q0M PRN IV 08/26/16 09:30 09/25/16 09:29 Ticagrelor 90 mg 90 mg BID PO 08/26/16 21:00 09/25/16 20:59 Ondansetron HCl 8 mg/Dextrose 54 ml @ 216 mls/hr DAILY PRN IV 08/26/16 10:45 09/25/16 10:44 Heparin Sodium/ Dextrose 500 ml @ 32 mls/hr [id number] PRN IV 08/26/16 10:45 09/25/16 10:44 08/26/16 11:23 32 MLS/HR Amiodarone HCL/ Dextrose 200 ml @ 33.3 mls/hr Q6H1M IV 08/26/16 11:45 08/26/16 17:45 08/26/16 11:52 33.3 MLS/HR Amiodarone HCL/ Dextrose 200 ml @ 16.7 mls/hr [id number] IV 08/26/16 17:46 09/25/16 17:45 Promethazine HCl/ Sodium Chloride (Phenergan Inj/ Nss 50ml) 50.5 ml @ 204 mls/hr Q6H PRN IV 08/26/16 12:30 09/25/16 12:29 08/26/16 12:39 204 MLS/HR Morphine Sulfate (MoRPHine SULFATE INJ) 2 mg Q2H PRN IV 08/26/16 14:45 09/09/16 14:44
[2016-08-26] MEDS ORDERED: LORAZEPAM 2 MG/ML 1 ML VIAL IV STA (16:13)
[2016-08-26] MEDS ORDERED: LORAZEPAM 2 MG/ML 1 ML VIAL ONE (16:18)
[2016-08-26 20:06] LABS: PARTIAL THROMBOPLASTIN RATIO 2.4
[2016-08-26] MEDS ORDERED: TICAGRELOR 90 MG TAB PO SCH (21:00)
[2016-08-27] VITALS (12 sets, daily range): BP systolic 122–154; BP diastolic 63–93; PULSE 84–101; O2SAT 84–90
--- NOTE | 2016-08-27 04:01 | Critical Care Progress Note ---
Critical Care Progress Note Date of Service August 27, 2016. Critical Care Progress Note Tad White at 0246 after experiencing Ventricular Tachycardia quickly followed be PEA and apnea with ultimate asystole. CPR was not attempted secondary to a DNI/DNR status that he requested earlier in the admission per discussion with Dr. Mayer. He has specifically requested that the team focus on his comfort.
--- NOTE | 2016-08-27 08:22 | CARDIOLOGY CONSULTATION ---
DATE OF CONSULTATION: 08/26/2016 REFERRING PHYSICIAN: Ivonne bryant. REASON FOR CONSULTATION: Post STEMI. HISTORY OF PRESENT ILLNESS: This is a 75-year-old male patient who is a former smoker and a phase zero diabetic, who presented with a STEMI and received a drug-eluting stent within the LAD. The procedure was noncomplicated; however, after the patient was admitted to the ICU, he has been hypotensive and experiencing some ventricular ectopy. He was started on dobutamine in the specialist employee labor relations, which was continued after his arrival to the ICU. The patient is not having any additional active chest pain and denies shortness of breath, but is currently nauseated and having dry heaves. He has no prior history of coronary artery disease. ALLERGIES: No known medical allergies. PAST MEDICAL HISTORY: The patient has a history of tobacco associated COPD and essential hypertension. He is a phase zero diabetic. He has no history of prior heart disease, kidney disease or strokes. His cardiac catheterization, however, does reveal significant 3-vessel coronary artery disease with the culprit lesion earlier this morning being the LAD. SOCIAL HISTORY: The patient is a former smoker. He is retired and lives alone. FAMILY MEDICAL HISTORY: Significant for mother with diabetes. REVIEW OF SYSTEMS: A 10-point review of systems is negative except for the history of chief complaint. PHYSICAL EXAMINATION: GENERAL: He is alert and oriented. He is having some dry heaves. VITAL SIGNS: Blood pressure is 100/70 and pulse is regular at 55 beats per minute. He is afebrile. HEENT: He is normocephalic. Pupils are equal and reactive to light. Extraocular muscles are intact bilaterally. NECK: The neck veins are flat. Carotids have good upstrokes bilaterally without bruits. Thyroid is nonpalpable. RESPIRATORY: Breath sounds equal bilaterally and clear to auscultation. CARDIOVASCULAR: Heart has a regular rhythm. Normal S1 and S2. No S3 or S4. No cardiac rubs or murmurs. GASTROINTESTINAL: Abdomen is soft and nontender without organomegaly. EXTREMITIES: Free of edema, digit clubbing, or cyanosis. NEUROLOGIC: Grossly intact. SKIN: Warm to touch. LYMPH NODES: Negative to palpation. IMPRESSION: 1. Status post ST elevation myocardial infarction. 2. Drug-eluting stent to LAD. 3. Significant 3-vessel coronary artery disease. 4. Phase zero diabetic. 5. History of hypertension. 6. Tobacco associated lung disease. RECOMMENDATIONS: The patient was given a beta alicia this morning despite being on dobutamine. Due to the patient's hypotension, I am going to hold the beta alicia for now. I am also going to switch him from dobutamine to dopamine for better improvement in his hypotension as well as giving him some IV fluids. Hopefully, that will improve his blood pressure and at some point, will be able to wean the dopamine off and restart the beta alicia. We will get him Zofran for his nausea. He was started on Brilinta by the superintendent communications last night and we will continue this medication along with aspirin. Finally, the patient is having some ventricular ectopy, which I believe is reperfusion arrhythmias and perhaps combined with the inotropic agents. No immediate treatment at this time.
--- NOTE | 2016-08-28 13:08 | Discharge Summary ---
Discharge Summary Date of Service August 28, 2016. Discharge Summary Admission Date: Aug 26, 2016 at 06:03 Discharge Disposition: Principal Diagnosis: ACUTE STEMI S/P TONNY TO LAD Secondary Diagnoses/Problems: HTN DYSLIPIDEMIA Procedures: CARDIAC CATH ECHO Interpretation Summary * Name: NONI FRANZ Study Date: 08/26/2016 08:42 AM BP: 114/65 mmHg * Patient Location: [facility] [place]\S\E111\S\1 HR: 70 * : 1940 (M/d/yyyy) Gender: Male Height: 72 in * Age: 75 yrs Ethnicity: CA Weight: 233 lb * Ordering Physician: Joe Pham * Performed By: Camryn Goss * * Reason For Study: AMI * BSA: 2.3 m2 * -- Conclusions -- * There is moderate concentric left ventricular hypertrophy. * There is anterior wall akinesis. * There is septal akinesis. * There is lateral wall akinesis. * There is apical akinesis. * Ejection Fraction = 30-35%. * The right ventricular systolic function is normal. * The left atrial size is normal. * Right atrial size is normal. Procedure Details * A complete two-dimensional transthoracic echocardiogram was performed (2D, M- mode, Doppler and color flow Doppler). * The study was technically difficult. * A contrast injection of Definity was performed to improve assessment of LV function. * Contrast was injected into an intravenous site in the left arm. * One vial of Definity ultrasound contrast was diluted in normal saline to a total volume of 10 ml. A total of '2' ml of solution was administered during imaging. * Lot # [id number] of Definity utilized for procedure. * Expiration date 08/14. * The attending nurse who injected the contrast agent was DANIEL TORO RN. Left Ventricle * The left ventricle is normal in size. * There is no thrombus. * There is moderate concentric left ventricular hypertrophy. * Ejection Fraction = 30-35%. * Left ventricular systolic function is moderate to severely reduced. * There is anterior wall akinesis. * There is septal akinesis. * There is lateral wall akinesis. * There is apical akinesis. Right Ventricle * The right ventricle is normal size. * The right ventricular systolic function is normal. Atria * The left atrial size is normal. * Right atrial size is normal. * The interatrial septum is intact with no evidence for an atrial septal defect. Mitral Valve * The mitral valve is grossly normal. * Significant mitral regurgitation is absent. Tricuspid Valve * The tricuspid valve is not well visualized. * Significant tricuspid regurgitation is absent. Aortic Valve * Aortic valve sclerosis mild, without significant aortic valvular stenosis. * There is no significant aortic regurgitation. Pulmonic Valve * The pulmonic valve is not well visualized. Great Vessels * The aortic root and proximal ascending aorta are normal sized. Pericardium/Pleural * There is no pericardial effusion. Consultations: Cardio [facility] Nurse Practitioner Admission Information HPI (per Admitting provider): Patient is a 75 yr old male with PMH of HTN, HLP, Former Tobacco use presents for evaluation of chest pain which started while trying to use bathroom this morning. He states having retrosternal chest pain and numbness of left UE associated with diaphoresis. Chest pain 8/10 intensity and he took Aspirin prior to arrival to ED. Denies any history of SOB, dizziness, nausea, vomiting, fever, chills, abd pain, diarrhea, urinary symptoms. Denies any previous history of heart attacks. He recently had colonoscopy which showed diverticulosis and hemorrhoids. Patient was seen and examined after he had TONNY to Proximal LAD and transferred to ICU. He is currently on Dobutamine ggt for hypotension and bradycardia. Physical Exam (per Admitting): General Appearance: WD/WN, no apparent distress Head: normocephalic, atraumatic Eyes: normal inspection, PERRL, EOMI ENT: normal ENT inspection, hearing grossly normal Neck: supple, trachea midline Respiratory/Chest: lungs clear, normal breath sounds, no respiratory distress, no accessory muscle use Cardiovascular: regular rate, rhythm, no murmur, + pertinent finding (1+ B/ L pitting edema ) Abdomen/GI: normal bowel sounds, non tender, soft Back: normal inspection Extremities/Musculoskelatal: normal inspection, normal range of motion, + pertinent finding (1+ B/L LE edema) 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 * There is anterior wall akinesis. * There is septal akinesis. * There is lateral wall akinesis. * There is apical akinesis. * Ejection Fraction = 30-35%. * The right ventricular systolic function is normal. * The left atrial size is normal. * Right atrial size is normal. HTN: BP in the low side Hold Amlodipine, HCTZ for now Monitor BP closely HLP Continue Lipitor H/O Diverticulosis: Currently no issues of bleeding Hb stable GI px: PPI DVT Px: Heparin drip Code Status DNR Total time spent on discharge = This includes examination of the patient, discharge planning, medication reconciliation, and communication with other providers. Discharge Instructions Pt at 2:46 am
== END 2016-08-27 05:25 | disposition expired | DRG 247 ==
LOC: C.EDB 03:43 → C.MSICU 06:03
PROVIDERS: ADMIT Internal Medicine Cardiovascular Disease; ATTEND Internal Medicine
PROC: 4A023N7 Measurement of Cardiac Sampling and Pressure, Left Heart, Percutaneous Approach (ICD-10-PCS; principal; 2016-08-26 04:19)
PROC: 027044Z Dilation of Coronary Artery, One Artery with Drug-eluting Intraluminal Device, Percutaneous Endoscopic Approach (ICD-10-PCS; principal; 2016-08-26 04:19)
PROC: 02C04ZZ Extirpation of Matter from Coronary Artery, One Artery, Percutaneous Endoscopic Approach (ICD-10-PCS; principal; 2016-08-26 04:19)
PROC: B211YZZ Fluoroscopy of Multiple Coronary Arteries using Other Contrast (ICD-10-PCS; principal; 2016-08-26 04:19)
DX: I21.29 ST elevation (STEMI) myocardial infarction involving other sites (principal); I25.10 Atherosclerotic heart disease of native coronary artery without angina pectoris; I95.9 Hypotension, unspecified; I10 Essential (primary) hypertension; E78.5 Hyperlipidemia, unspecified; K57.90 Diverticulosis of intestine, part unspecified, without perforation or abscess without bleeding; I51.7 Cardiomegaly; Z66 Do not resuscitate; Z87.891 Personal history of nicotine dependence; Z79.82 Long term (current) use of aspirin; Z79.899 Other long term (current) drug therapy; Z83.3 Family history of diabetes mellitus